=== PATIENT | female | born 1980 | race Caucasian/White ===

== ENCOUNTER 2022-03-14 15:06 | Observation (INO) | payer MEDICARE, OTHER ==
[2022-03-14 16:00] LABS: Basophils # (A) 0.1 k/uL (0-0.2); Basophils % (A) 1 %; Eosinophils % (A) 1 %; HCT 47.9 % (34.0-46.0); HGB 15.9 gm/dL (11.4-16.0); Lymphocytes # (A) 1.4 k/uL (1.0-4.8); Lymphocytes % (A) 26 %; MCH 28.3 pg (25.0-35.0); MCHC 33.2 g/dL (31.0-37.0); MCV 85.2 fL (80.0-100.0); Mean Platelet Volume 8.3; Monocytes # (A) 0.1 k/uL (0-1.0); Monocytes % (A) 3 %; Neutrophils # (A) 3.5 k/uL (1.3-7.7); Neutrophils % (A) 68 %; Platelet Count 208 k/uL (150-450); RBC 5.62 m/uL (3.80-5.40); RDW 13.5 % (11.5-15.5); WBC 5.2 k/uL (3.8-10.6)
[2022-03-14 16:22] LABS: ALT 102 U/L (4-34); AST 108 U/L (14-36); African American GFR (CKD) >90 (>60 ml/min/1.73 sqM); Albumin 4.1 g/dL (3.5-5.0); Alkaline Phosphatase 775 U/L (38-126); Amylase 72 U/L (30-110); Anion Gap 10 mmol/L; Blood Urea Nitrogen 14 mg/dL (7-17); Carbon Dioxide 30 mmol/L (22-30); Chloride 100 mmol/L (98-107); Glucose 117 mg/dL (74-99); Lipase 54 U/L (23-300); Non-African American GFR(CKD) >90 (>60 ml/min/1.73 sqM); Potassium 3.9 mmol/L (3.5-5.1); Sodium 140 mmol/L (137-145); Total Bilirubin 0.6 mg/dL (0.2-1.3); Total Protein 7.5 g/dL (6.3-8.2)
[2022-03-14] MEDS ORDERED: ONDANSETRON 4 MG/2 ML VIAL IVP STA ×2 (18:56→20:45)
[2022-03-14] MEDS ORDERED: SODIUM CHLORIDE 0.9% 2,000 ML IV STA (18:57)
[2022-03-14] MEDS ORDERED: MORPHINE SULFATE 4 MG/ML SYRINGE IVP STA (18:57)
[2022-03-14] MEDS ORDERED: methylPREDNISolone SOD SUCCI 125 MG/2 ML VIAL IV ONE (18:58)
--- NOTE | 2022-03-14 20:33 | XR ---
EXAMINATION TYPE: XR thoracic spine 2V DATE OF EXAM: 03/14/2022 COMPARISON: NONE HISTORY: Back pain TECHNIQUE: 3 views FINDINGS: Thoracic vertebra have normal alignment. Posterior elements are intact. There is no paraspi nal mass. No compression fracture. IMPRESSION: Normal thoracic spine exam. No fracture.
--- NOTE | 2022-03-14 20:35 | XR ---
EXAMINATION TYPE: XR lumbar spine 2 or 3V DATE OF EXAM: 03/14/2022 COMPARISON: NONE HISTORY: Back pain TECHNIQUE: 3 views FINDINGS: Lumbar vertebrae have normal spacing and alignment. Posterior elements are intact. No compr ession fracture. There are clips from cholecystectomy. Sacroiliac joints are intact. IMPRESSION: Negative lumbar spine exam. No fracture.
[2022-03-14] MEDS ORDERED: HYDROmorphone 0.5 MG/0.5 ML SYRINGE IVP STA (20:45)
--- NOTE | 2022-03-14 21:15 | ED ---
General Adult HPI - General Chief complaint: Nausea/Vomiting/Diarrhea Stated complaint: Abd pain Time Seen by Provider: 03/14/22 18:39 Source: patient Mode of arrival: ambulatory Limitations: no limitations - History of Present Illness Initial comments: Patient is a 42-year-old female with a past medical history of systemic lupus erythematosus who presents for evaluation of lupus flareup. 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 Patient reports generalized abdominal pain, nausea, vomiting, diarrhea, which she states is typical of her lupus enteritis flare up. Symptoms started on Sunday. Reports inability to tolerate food or liquid. Patient tried taking [place] at home with no relief. Patient also describes coffee ground emesis which she has never experienced before. Denies history of ulcer and chronic NSAID use. Patient does have a GI specialist that she has been seeing for lupus enteritis as well as unknown etiology of elevated liver enzymes. Patient also reports a protrusion in her back that she noticed 2 weeks ago and would like evaluation. Patient states she has loss some weight due to her flareups which could be why she is noticing though protrusion now. She states it does not hurt unless there is a lot of pressure on it. - Related Data Home Medications Medication Instructions Recorded Confirmed Budesonide-Formot 160-4.5 Mcg 2 puff INHALATION RT-BID 03/14/22 03/14/22 [Symbicort 160-4.5 Mcg Inhaler] HYDROcodone/APAP 7.5-325MG [[place] 1 tab PO Q6HR 03/14/22 03/14/22 7.5-325] Hydroxychloroquine Sulfate 200 mg PO BID@0900,1500 03/14/22 03/14/22 [Plaquenil] Montelukast Sodium [Singulair] 10 mg PO HS 03/14/22 03/14/22 Promethazine HCl 25 mg PO Q6H PRN 03/14/22 03/14/22 buPROPion HCL [Wellbutrin XL] 150 mg PO DAILY 03/14/22 03/14/22 fentaNYL 25MCG/HR PATCH [Duragesic 1 patch TRANSDERM Q72H 03/14/22 03/14/22 25MCG/HR] lisinopriL 2.5 mg PO DAILY 03/14/22 03/14/22 traZODone HCL [Desyrel] 100 mg PO HS 03/14/22 03/14/22 Allergies Allergy/AdvReac Type Severity Reaction Status Date / Time vancomycin Allergy Rash/Hives Verified 03/14/22 19:41 Review of Systems ROS Statement: Those systems with pertinent positive or pertinent negative responses have been documented in the HPI. ROS Other: All systems not noted in ROS Statement are negative. Past Medical History Past Medical History: Asthma, Rheumatoid Arthritis (RA) Additional Past Medical History / Comment(s): Lupus Past Surgical History: No Surgical Hx Reported, Appendectomy, Cardiac Ablation, Cholecystectomy, Hysterectomy, Tonsillectomy Smoking Status: Never smoker Past Alcohol Use History: None Reported Past Drug Use History: None Reported General Exam Limitations: no limitations General appearance: alert, in no apparent distress Head exam: Present: atraumatic, normocephalic, normal inspection Eye exam: Present: normal appearance, PERRL, EOMI. Absent: scleral icterus, conjunctival injection, periorbital swelling Neck exam: Present: normal inspection, full ROM Respiratory exam: Present: normal lung sounds bilaterally. Absent: respiratory distress, wheezes, rales, rhonchi, stridor Cardiovascular Exam: Present: regular rate, normal rhythm, normal heart sounds. Absent: systolic murmur, diastolic murmur, rubs, gallop, clicks GI/Abdominal exam: Present: soft, tenderness (moderate, generalized ), normal bowel sounds. Absent: distended, guarding, rebound, rigid Back exam: Present: normal inspection. Absent: CVA tenderness (R) Neurological exam: Present: alert, oriented X3, CN II-XII intact Psychiatric exam: Present: normal affect, normal mood Skin exam: Present: warm, dry, intact, normal color. Absent: rash Course Vital Signs 03/14/22 03/14/22 03/14/22 15:26 18:52 19:24 Temperature 98.4 F Pulse Rate 98 66 Respiratory 20 18 16 Rate Blood Pressure 126/60 145/81 129/96 O2 Sat by Pulse 92 L Oximetry 03/14/22 21:04 Temperature Pulse Rate Respiratory 16 Rate Blood Pressure 125/88 O2 Sat by Pulse Oximetry Medical Decision Making - Medical Decision Making This is a 42-year-old female who presents for evaluation of possible lupus enteritis flare up. Thorough history and examination were performed. Patient is having symptoms typical of her flare up which included, pain, nausea, vomit ing, and diarrhea. Does describe episodes of hematemesis which have never occurred before. Patient does appear to be in pain. The abdomen is soft and mildly tender in all 4 quadrants. I will obtain laboratory studies and treat patient's symptoms. I will also x-ray patient's spine due to concern for protrusion. Laboratory studies are remarkable for elevated liver enzymes, as expected per patient's history. AST elevated at 108, ALT elevated at 102, and alk phos elevated at 775. No previous laboratory studies for comparing. Patient states she usually goes to [facility] emergency department but they were too busy today. Unable to assess blood in vomit due to no emesis episodes during patient's emergency stay. Thoracic and lumbar x-rays are unremarkable. Patient given pain and nausea medication. Patient also given Solu-Medrol for lupus flareup. On reevaluation her symptoms are not controlled. I did give patient another dose of pain and nausea medication which mildly helped symptoms. Patient does not feel well enough to go home. She felt very nauseous after attempting to eat in the emergency department. Case discussed with Dr. Hoang. Patient will be admitted to his service with rheumatology consult for further evaluation and management. Patient admitted in stable condition. Dr. Benítez is my attending. - Lab Data Result diagrams: 03/14/22 15:54 03/14/22 15:54 Lab Results 03/14/22 03/14/22 Range/Units 15:54 15:54 WBC 5.2 (3.8-10.6) k/uL RBC 5.62 H (3.80-5.40) m/uL Hgb 15.9 (11.4-16.0) gm/dL Hct 47.9 H (34.0-46.0) % MCV 85.2 (80.0-100.0) fL MCH 28.3 (25.0-35.0) pg MCHC 33.2 (31.0-37.0) g/dL RDW 13.5 (11.5-15.5) % Plt Count 208 (150-450) k/uL MPV 8.3 Neutrophils % 68 % Lymphocytes % 26 % Monocytes % 3 % Eosinophils % 1 % Basophils % 1 % Neutrophils # 3.5 (1.3-7.7) k/uL Lymphocytes # 1.4 (1.0-4.8) k/uL Monocytes # 0.1 (0-1.0) k/uL Eosinophils # 0.0 (0-0.7) k/uL Basophils # 0.1 (0-0.2) k/uL Sodium 140 (137-145) mmol/L Potassium 3.9 (3.5-5.1) mmol/L Chloride 100 (98-107) mmol/L Carbon Dioxide 30 (22-30) mmol/L Anion Gap 10 mmol/L BUN 14 (7-17) mg/dL Creatinine 0.78 (0.52-1.04) mg/dL Est GFR (CKD-EPI)AfAm >90 (>60 ml/min/1.73 sqM) Est GFR (CKD-EPI)NonAf >90 (>60 ml/min/1.73 sqM) Glucose 117 H (74-99) mg/dL Calcium 9.0 (8.4-10.2) mg/dL Total Bilirubin 0.6 (0.2-1.3) mg/dL AST 108 H (14-36) U/L ALT 102 H (4-34) U/L Alkaline Phosphatase 775 H (38-126) U/L Total Protein 7.5 (6.3-8.2) g/dL Albumin 4.1 (3.5-5.0) g/dL Amylase 72 (30-110) U/L Lipase 54 (23-300) U/L Disposition Clinical Impression: Lupus (systemic lupus erythematosus), Abdominal pain, Nausea and vomiting, Back complaints Disposition: ADMITTED IP TO THIS [facility] Condition: Fair Referrals: Sangeeta Helm DO [Primary Care Provider] - 1-2 days
[2022-03-14] MEDS ORDERED: PANTOPRAZOLE 40 MG/10 ML VIAL IVP STA (21:23)
[2022-03-14] MEDS ORDERED: NALOXONE 0.4 MG/ML 1 ML VIAL IV PRN (21:35)
[2022-03-14] MEDS ORDERED: ONDANSETRON 4 MG/2 ML VIAL IVP PRN (21:35)
[2022-03-14] MEDS ORDERED: traZODone HCL 100 MG TAB PO SCH (21:45)
[2022-03-14] MEDS: SODIUM CHLORIDE 0.9% 1,000 ML IV SCH (23:15)
--- NOTE | 2022-03-14 23:53 | P.HPIM ---
History of Present Illness H&P Date: 03/14/22 The patient is a 42-year-old female with a PMH of SLE, lupus enteritis and nephritis, rheumatoid arthritis, and moderate persistent asthma who presents to the emergency room with complaints of nausea, vomiting, and abdominal pain. The patient reports experiencing frequent lupus enteritis flareups, as many as 5-6 times a year, for which she normally follows up with Magdaleno Thomas. The current episode feels similar to her prior flareups. Reports that her symptoms started this past Sunday and gradually worsened with inability to tolerate any solids or liquids. She reports too many episodes of vomiting to count. She has not seen a campus president for over a year but does follow with her brake specialist as well as toe puller who refills her SLE medications. Reported abdominal pain which also started this past Sunday, 7 out of 10, aching in nature, worsened with vomiting, nonradiating, diffuse throughout the abdomen, with no alleviating factors. Also reports a single episode of coffee-ground emesis which she has never expressed before. Denied history of gastric ulcers or NSAID use. Denies fevers, chest pain, shortness of breath. Laboratory evaluation in the emergency room was remarkable for AST 108, ALT 102, and alk phos 775. Review of systems: Pertinent positives and negatives as discussed in HPI, a complete review of systems was performed and all other systems are negative. Physical examination: General: non toxic, no distress, appears at stated age, normal weight Derm: no unusual rashes/lesions no unusual ecchymoses, warm, dry Head: atraumatic, normocephalic, symmetric Eyes: EOMI, no lid lag, anicteric sclera, pupils equal round reactive to light ENT: Nose and ears atraumatic, no thrush, no pharyngeal erythema Neck: No thyromegaly, no cervical lymphadenopathy, trachea midline, supple Mouth: no lip lesion, mucus membranes moist Cardiovascular: S1S2 reg, no murmur, positive posterior tibial pulse bilateral, no edema, capillary refill less than 2 seconds Lungs: CTA bilateral, no rhonchi, no rales , no accessory muscle use Abdominal: soft, mild diffuse tenderness to palpation, minimal guarding, no appreciable organomegaly, normal bowel sounds Ext: no gross muscle atrophy, muscle strength 5 out of 5 in all 4 extremities grossly, no contractures, Neuro: CN II-XI grossly intact, light touch intact all 4 extremities, finger to nose within normal limits, Psych: Alert, oriented, appropriate affect Assessment/plan Lupus enteritis flareup -Solu-Medrol 60 mg every 6 hourly -Rheumatology consult -IV fluids -Patient reports being able to tolerate clear liquids currently -Antiemetics -Pain control Chronic conditions: Asthma, rheumatoid arthritis -Continue with home meds DVT prophylaxis -Heparin subcu The patient is admitted with an anticipated less than 2 midnight stay for evaluation of SLE flare CODE STATUS: Full Code Discussed with: Patient Anticipated discharge date: in am Anticipated discharge place: Home Past Medical History Past Medical History: Asthma, Rheumatoid Arthritis (RA) Additional Past Medical History / Comment(s): Lupus Past Surgical History: No Surgical Hx Reported, Appendectomy, Cardiac Ablation, Cholecystectomy, Hysterectomy, Tonsillectomy Smoking Status: Never smoker Past Alcohol Use History: None Reported Past Drug Use History: None Reported - Past Family History Mother Family Medical History: Cancer Medications and Allergies Home Medications Medication Instructions Recorded Confirmed Type Budesonide-Formot 160-4.5 Mcg 2 puff INHALATION RT-BID 03/14/22 03/14/22 History [Symbicort 160-4.5 Mcg Inhaler] HYDROcodone/APAP 7.5-325MG [[place] 1 tab PO Q6HR 03/14/22 03/14/22 History 7.5-325] Hydroxychloroquine Sulfate 200 mg PO BID@0900,1500 03/14/22 03/14/22 History [Plaquenil] Montelukast Sodium [Singulair] 10 mg PO HS 03/14/22 03/14/22 History Promethazine HCl 25 mg PO Q6H PRN 03/14/22 03/14/22 History buPROPion HCL [Wellbutrin XL] 150 mg PO DAILY 03/14/22 03/14/22 History fentaNYL 25MCG/HR PATCH [Duragesic 1 patch TRANSDERM Q72H 03/14/22 03/14/22 History 25MCG/HR] lisinopriL 2.5 mg PO DAILY 03/14/22 03/14/22 History traZODone HCL [Desyrel] 100 mg PO HS 03/14/22 03/14/22 History Allergies Allergy/AdvReac Type Severity Reaction Status Date / Time vancomycin Allergy Rash/Hives Verified 03/14/22 19:41 Physical Exam Vitals: Vital Signs Temp Pulse Resp BP Pulse Ox 03/14/22 21:04 16 125/88 03/14/22 19:24 16 129/96 03/14/22 18:52 66 18 145/81 03/14/22 15:26 98.4 F 98 20 126/60 92 L Intake and Output 03/14/22 03/14/22 03/15/22 14:59 22:59 06:59 Other: Weight 68.039 kg Results CBC & Chem 7: 03/14/22 15:54 03/14/22 15:54 Labs: Abnormal Lab Results - Last 24 Hours (Table) 03/14/22 03/14/22 Range/Units 15:54 15:54 RBC 5.62 H (3.80-5.40) m/uL Hct 47.9 H (34.0-46.0) % Glucose 117 H (74-99) mg/dL AST 108 H (14-36) U/L ALT 102 H (4-34) U/L Alkaline Phosphatase 775 H (38-126) U/L
[2022-03-15] MEDS: HEPARIN SODIUM,PORCINE/PF 5,000 UNIT/0.5 ML SYRINGE SQ SCH ×2 (01:20→08:32)
[2022-03-15] MEDS: methylPREDNISolone SOD SUCCI 125 MG/2 ML VIAL IV SCH ×3 (01:21→12:41)
[2022-03-15] MEDS: SODIUM CHLORIDE 0.9% 1,000 ML IV SCH (05:23)
[2022-03-15] MEDS ORDERED: SYMBICORT 160-4.5 MCG INHALER INHALATION SCH (08:00)
[2022-03-15 08:50] LABS: HCT 36.5 % (34.0-46.0); MCH 29.5 pg (25.0-35.0); MCHC 33.7 g/dL (31.0-37.0); MCV 87.5 fL (80.0-100.0); Mean Platelet Volume 8.4; Platelet Count 155 k/uL (150-450); RBC 4.17 m/uL (3.80-5.40); RDW 13.9 % (11.5-15.5); WBC 3.1 k/uL (3.8-10.6)
[2022-03-15 08:51] VITALS: PULSE 71; RESP 18
[2022-03-15 08:55] LABS: HGB 12.3 gm/dL (11.4-16.0)
[2022-03-15] MEDS ORDERED: buPROPion XL 150 MG TAB.ER.24H PO SCH (09:00)
[2022-03-15] MEDS ORDERED: PANTOPRAZOLE 40 MG/10 ML VIAL IVP SCH (09:00)
[2022-03-15] MEDS ORDERED: HYDROXYCHLOROQUINE SULFATE 200 MG TAB PO SCH (09:00)
[2022-03-15 09:02] LABS: ALT 148 U/L (4-34); AST 180 U/L (14-36); African American GFR (CKD) >90 (>60 ml/min/1.73 sqM); Albumin/Globulin Ratio 1.1; Alkaline Phosphatase 646 U/L (38-126); Anion Gap 4 mmol/L; Blood Urea Nitrogen 16 mg/dL (7-17); Calcium 7.6 mg/dL (8.4-10.2); Carbon Dioxide 23 mmol/L (22-30); Chloride 110 mmol/L (98-107); Globulin 2.7 g/dL; Glucose 131 mg/dL (74-99); Non-African American GFR(CKD) >90 (>60 ml/min/1.73 sqM); Potassium 4.3 mmol/L (3.5-5.1); Sodium 137 mmol/L (137-145); Total Bilirubin 0.5 mg/dL (0.2-1.3); Total Protein 5.7 g/dL (6.3-8.2)
[2022-03-15 10:42] LABS: C Reactive Protein <0.5 mg/dL (<1.0)
--- NOTE | 2022-03-15 11:46 | P.CONS ---
History of Present Illness - Reason for Consult Consult date: 03/15/22 Lupus enteritis - History of Present Illness This is a inpatient hospital consult on a 42-year-old female that was seen in the emergency room on 03/14/22 with chief complaint of lupus flare. Patient complained of lupus enteritis-like symptoms including abdominal pain, nausea, vomiting, diarrhea. Her symptoms started on Sunday and has been unable to tolerate food or liquids. She tried taking [place] with no relief. She also described coffee-ground like emesis. She has seen GI in the past for lupus enteritis and history of elevated liver enzymes. She also would like someone to evaluate a protrusion in her back. She is on [place] and Plaquenil as well as fentanyl patches. Patient usually goes to [facility] when she has a flare but they were too busy so that is why she drove out to [facility]. Her thoracic and lumbar x-rays were normal. She was given pain and nausea medication as well as Solu-Medrol for her lupus flare. Patient then continued to complain to emergency room physician that she was symptomatically so she will be admitted for rheumatological consultation. Patient later told attending physician that she has visit enteritis flares about 6 times per year and has not seen a commercial tire service technician for over one year but does see a sample room supervisor who fills her Plaquenil. Pertinent labs 03/14/22: CBC shows high RBC 5.62 and high hematocrit 47.9 otherwise normal, CMP showed high AST 108, high ALT 102, high alkaline phosphatase 775, normal amylase and lipase, negative influenza. Chief complaint: Patient states that she is feeling much better since receiving nausea and pain medication during her emergency room visit. She does complain of chronic generalized pain and chronic abdominal pain. She tells me that she was diagnosed with lupus at age 29 while with twins due to severe pain and all over rashes. She was diagnosed through blood work and labs were consistent with lupus and rheumatoid arthritis. She has since seen several rheumatologists including Dr. Santillan, Dr. Burton, [facility]ology and [place] [facility]. She is currently on Plaquenil but has tried and failed Benlysta, Cellcept, Imuran, and methotrexate. She said that she either findings that they don't help or she suffered side effects. She said that Benlysta worked the best but this made her depression worsen. She said when she does have flares she will have hair loss, nasal ulcers, rashes, and worsening joint pain and stiffness. She is currently on pain control through her primary care Dr. Helm and takes fentanyl patches and Whatley. She admits to morning stiffness lasting 3 hours. She is a ex-smoker. In regard to her abdominal pain, she had a recent colonoscopy in December and was told that she had "fluid in her belly" and was diagnosed with lupus enteritis through her sample room supervisor Dr. Dozier out of [place]. She is on disability for her lupus. She is also on the waiting list to be seen at [facility] Exam: No obvious synovitis, no malar rash, lungs clear to auscultation, heart sounds regular rate and rhythm, good range of motion throughout, yellowed nails (patient admits to recent nail kazakh removal), abdomen soft and nontender with normal bowel sounds in all 4 quadrants, alert and oriented 4 I will order positive JW, double-stranded DNA, Clark, ROLLING DOWN MACHINE OPERATOR and C3 and C4 labs as well as sedimentation rate and C-reactive protein. Patient said she has not seen a commercial tire service technician in over one year and would like to be seen by Dr. Hansen for evaluation. I wrote down a medication called Saphnelo that I told her that we could discuss as an outpatient. Although, this would be pending confirming her diagnosis through labs and historical medical records. Patient is aware we do not do any sort of pain management at our office. Patient was being discharged from the emergency room due to being stable in her condition at the time of my exam. Patient was given our office information and can call and schedule a new patient exam with Dr. Hansen at her earliest convenience. Past Medical History Past Medical History: Asthma, Rheumatoid Arthritis (RA) Additional Past Medical History / Comment(s): Lupus Past Surgical History: No Surgical Hx Reported, Appendectomy, Cardiac Ablation, Cholecystectomy, Hysterectomy, Tonsillectomy Smoking Status: Never smoker Past Alcohol Use History: None Reported Past Drug Use History: None Reported - Past Family History Mother Family Medical History: Cancer Medications and Allergies Home Medications Medication Instructions Recorded Confirmed Type Budesonide-Formot 160-4.5 Mcg 2 puff INHALATION RT-BID 03/14/22 03/14/22 History [Symbicort 160-4.5 Mcg Inhaler] HYDROcodone/APAP 7.5-325MG [[place] 1 tab PO Q6HR 03/14/22 03/14/22 History 7.5-325] Hydroxychloroquine Sulfate 200 mg PO BID@0900,1500 03/14/22 03/14/22 History [Plaquenil] Montelukast Sodium [Singulair] 10 mg PO HS 03/14/22 03/14/22 History Promethazine HCl 25 mg PO Q6H PRN 03/14/22 03/14/22 History buPROPion HCL [Wellbutrin XL] 150 mg PO DAILY 03/14/22 03/14/22 History fentaNYL 25MCG/HR PATCH [Duragesic 1 patch TRANSDERM Q72H 03/14/22 03/14/22 History 25MCG/HR] lisinopriL 2.5 mg PO DAILY 03/14/22 03/14/22 History traZODone HCL [Desyrel] 100 mg PO HS 03/14/22 03/14/22 History Allergies Allergy/AdvReac Type Severity Reaction Status Date / Time vancomycin Allergy Rash/Hives Verified 03/14/22 19:41 Physical Exam Vitals: Vital Signs Temp Pulse Resp BP Pulse Ox 03/15/22 08:35 71 18 138/87 95 03/15/22 05:00 62 16 155/87 03/15/22 01:19 72 16 147/97 96 03/14/22 21:04 16 125/88 03/14/22 19:24 16 129/96 03/14/22 18:52 66 18 145/81 03/14/22 15:26 98.4 F 98 20 126/60 92 L Intake and Output 03/14/22 03/15/22 03/15/22 22:59 06:59 14:59 Other: Weight 68.039 kg - Constitutional General appearance: average body habitus, cooperative - EENT Eyes: PERRLA ENT: hearing grossly normal - Neck Neck: normal ROM - Respiratory Respiratory: bilateral: CTA - Cardiovascular Rhythm: regular Heart sounds: normal: S1, S2 - Gastrointestinal General gastrointestinal: normal bowel sounds, soft - Integumentary Integumentary: normal - Neurologic Neurologic: CNII-XII intact - Musculoskeletal Musculoskeletal: gait normal - Psychiatric Psychiatric: A&O x's 3 Results CBC & Chem 7: 03/15/22 08:15 03/15/22 08:15 Labs: Abnormal Lab Results - Last 24 Hours (Table) 03/14/22 03/14/22 03/15/22 Range/Units 15:54 15:54 08:15 WBC 3.1 L (3.8-10.6) k/uL RBC 5.62 H (3.80-5.40) m/uL Hct 47.9 H (34.0-46.0) % Chloride (98-107) mmol/L Glucose 117 H (74-99) mg/dL Calcium (8.4-10.2) mg/dL AST 108 H (14-36) U/L ALT 102 H (4-34) U/L Alkaline Phosphatase 775 H (38-126) U/L Total Protein (6.3-8.2) g/dL Albumin (3.5-5.0) g/dL 03/15/22 Range/Units 08:15 WBC (3.8-10.6) k/uL RBC (3.80-5.40) m/uL Hct (34.0-46.0) % Chloride 110 H (98-107) mmol/L Glucose 131 H (74-99) mg/dL Calcium 7.6 L (8.4-10.2) mg/dL AST 180 H (14-36) U/L ALT 148 H (4-34) U/L Alkaline Phosphatase 646 H (38-126) U/L Total Protein 5.7 L (6.3-8.2) g/dL Albumin 3.0 L (3.5-5.0) g/dL
[2022-03-15] MEDS ORDERED: HYDROcodone/APAP 7.5-325MG 1 EACH TAB PO SCH (12:00)
--- NOTE | 2022-03-15 12:28 | P.DS ---
Providers Date of admission: 03/14/22 22:33 Expected date of discharge: 03/15/22 Attending physician: Chris Hoang MD Consults: 03/14/22 21:36 Consult Physician Routine Consulting Provider: Wanda Hansen Consult Reason/Comments: lupus enteritis flare up Do you want consulting provider notified?: Yes Primary care physician: Sangeeta Helm [facility] Course: Discharge Diagnosis: Lupus enteritis flareup, patient discharged home on prednisone 60 mg daily 10 days. Patient instructed she will need to follow up with tool and die maker level five for r emainder of prescription for steroid taper. Patient to continue with Plaquenil Transaminitis, patient to follow-up outpatient in 3 days for repeat CMP with results to be sent to PCP for follow-up and management. Asthma, continue daily medication regimen with Singulair and Symbicort Rheumatoid arthritis, continue to follow up outpatient with tool and die maker level five Anxiety. Continue with Wellbutrin and trazodone Hospital Course: The patient is a 42-year-old female with a past medical history of lupus enteritis and nephritis, rheumatoid arthritis, and moderate persistent asthma. She presented to the emergency department 03/14/22 with a chief complaint of nausea, vomiting, and abdominal pain. Patient reported frequent lupus enteritis flareups and states this episode is similar to previous flareups. Patient underwent full evaluation in the emergency department. CBC unremarkable. BMP unremarkable. Liver profile showing transaminitis with AST 108, ALT 102, and alkaline phosphatase of 775. Patient was admitted overnight, received IV fluid hydration and steroids. Patient's condition did significantly improve. All nausea, vomiting, and diarrhea completely subsided. Patient reports full resolution of previously reported abdominal pain and is tolerating clear liquids. She was then increased up to a low-fat diet and tolerated well. Repeat labs revealing an elevated ESR of 30 and worsening transaminitis with AST of 180, ALT 148, and alkaline phosphatase of 646. Patient very adamant about going home today as she reports that it is her son's 21[age] birthday. Attempts made to talk with patient as it was highly recommended for her to stay in the hospital for at least 1 more day, however she declined wanting discharge and stating she will follow up outpatient with her PCP and tool and die maker level five. Patient to follow up outpatient in 3 days for repeat CMP with results to PCP for follow up and management. Physical examination: Patient seen and examined at bedside. Vital signs reviewed and stable. General: Nontoxic, no distress and appears stated age. Derm: Skin warm and dry, normal coloration for ethnicity. Head: Atraumatic, normocephalic and symmetric. Eyes: EOMs intact, no lid lag, and anicteric sclera Mouth: no lip lesions, mucus membranes moist Cardiovascular: regular rate and rhythm with normal S1S2, no murmur, positive posterior tibial pulses bilaterally, and cap refill < 2 seconds. Lungs: Respirations even, regular, and unlabored on room air. Lungs CTA bilaterally, no rhonchi, no rales, no wheezing, and no accessory muscle usage. Abdominal: soft, nontender to palpation, no guarding, no appreciable organomegaly Ext: ROM intact. No gross muscle atrophy, no edema, no contractures Neuro: Speech clear, face symmetrical and CN II-XII grossly intact with no noted focal neuro deficits Psych: Alert and oriented to person, place, time, and situation. Appropriate and pleasant affect. A total of 34 minutes of time were spent preparing this complex discharge summary. Pt was discharged on 03/15/22 at 12:24 PM. Wai Jones NP rendered care for this patient independently, reviewed the findings and plan as documented in the note above. I did not physically speak with or examine the patient on this date. Patient Condition at Discharge: Stable Plan - Discharge Summary New Discharge Prescriptions: New predniSONE 60 mg PO DAILY 10 Days #60 tab Continue Montelukast Sodium [Singulair] 10 mg PO HS lisinopriL 2.5 mg PO DAILY Budesonide-Formot 160-4.5 Mcg [Symbicort 160-4.5 Mcg Inhaler] 2 puff INHALATION RT-BID buPROPion HCL [Wellbutrin XL] 150 mg PO DAILY traZODone HCL [Desyrel] 100 mg PO HS Promethazine HCl 25 mg PO Q6H PRN PRN Reason: Nausea fentaNYL 25MCG/HR PATCH [Duragesic 25MCG/HR] 1 patch TRANSDERM Q72H HYDROcodone/APAP 7.5-325MG [[place] 7.5-325] 1 tab PO Q6HR Hydroxychloroquine Sulfate [Plaquenil] 200 mg PO BID@0900,1500 Discharge Medication List Budesonide-Formot 160-4.5 Mcg [Symbicort 160-4.5 Mcg Inhaler] 2 puff INHALATION RT-BID 03/14/22 [History] HYDROcodone/APAP 7.5-325MG [[place] 7.5-325] 1 tab PO Q6HR 03/14/22 [History] Hydroxychloroquine Sulfate [Plaquenil] 200 mg PO BID@0900,1500 03/14/22 [History] Montelukast Sodium [Singulair] 10 mg PO HS 03/14/22 [History] Promethazine HCl 25 mg PO Q6H PRN 03/14/22 [History] buPROPion HCL [Wellbutrin XL] 150 mg PO DAILY 03/14/22 [History] fentaNYL 25MCG/HR PATCH [Duragesic 25MCG/HR] 1 patch TRANSDERM Q72H 03/14/22 [History] lisinopriL 2.5 mg PO DAILY 03/14/22 [History] traZODone HCL [Desyrel] 100 mg PO HS 03/14/22 [History] predniSONE 60 mg PO DAILY 10 Days #60 tab 03/15/22 [Rx] Follow up Appointment(s)/Referral(s): Wanda Hansen MD [STAFF PHYSICIAN] - 1 Week (Contact information for Local Seed Analyst as you requested, if you do not get an appointment within 1 week, highly recommend making an appointment with your Seed Analyst at [facility] ) Sangeeta Helm DO [Primary Care Provider] - 1-2 days Ambulatory/Diagnostic Orders: Comprehensive Metabolic Panel [LAB.AMB] Time Frame: 3 Days, Facility: [facility], Location: [facility] Activity/Diet/Wound Care/Special Instructions: Activity: As tolerated. Take breaks as needed. Diet: Low fat diet and avoid alfalfa and garlic, as these foods have been known to trigger lupus flares Special Instructions: Take all of your medications as directed and remember to keep all of your doctor's appointments and follow-up as needed. It is highly recommended that you stay in the hospital at least one more day, however per your request you are being discharged home and need to follow up with your [facility] Analyst at [facility] if you are not able to get into a local rhematologist within the week. You have been given contact information for a local Seed Analyst per your request. Thank you for allowing us to participate in your care, it was truly a pleasure having you for our patient!!! Discharge Disposition: HOME SELF-CARE
[2022-03-15 12:33] LABS: Erythrocyte Sedimentation Rate 30 mm/hr (0-20)
[2022-03-15 12:40] VITALS: BP 137/84; TEMP 98.2
[2022-03-15 16:30] LABS: Complement C3 71.9 mg/dL (80.0-207.0); Rheumatoid Factor, Qnt <10 IU/mL (0-15)
[2022-03-16 16:44] LABS: Anti-Smith Ab Interp NEGATIVE (NEGATIVE); DNA Double-Stranded NEGATIVE (NEGATIVE)
== END 2022-03-15 12:41 | disposition home or self-care (01) ==
LOC: EC 15:06 → 6NMEDSUR 22:33
PROVIDERS: ADMIT Internal Medicine; ATTEND Internal Medicine
DX: M32.9 Systemic lupus erythematosus, unspecified (principal); K52.9 Noninfective gastroenteritis and colitis, unspecified; R74.01 Elevation of levels of liver transaminase levels; R70.0 Elevated erythrocyte sedimentation rate; R74.8 Abnormal levels of other serum enzymes; M06.9 Rheumatoid arthritis, unspecified; J45.40 Moderate persistent asthma, uncomplicated; G89.29 Other chronic pain; F32.A Depression, unspecified; F41.9 Anxiety disorder, unspecified; Z79.51 Long term (current) use of inhaled steroids; Z79.899 Other long term (current) drug therapy; Z88.1 Allergy status to other antibiotic agents; Z87.891 Personal history of nicotine dependence; Z90.49 Acquired absence of other specified parts of digestive tract; Z80.9 Family history of malignant neoplasm, unspecified
CPT/HCPCS: 99285; 96376; 96361; 96372; 96374; 96375; 94640; 86160 ×2; 80053 ×2; 85652; 86235; 82150; 83690; 85025; 85027; 86140; 86431; 86038; 86039; 86225; 87502; 72070; 72100; G0378 ×2; J2270; J2930 ×2; J2405 ×2; C9113 ×2; J1170; J1644

== ENCOUNTER 2022-05-19 20:07 | Emergency (ER) | payer MEDICARE ==
[2022-05-19 20:24] VITALS: BP 141/72; PULSE 85; RESP 22; TEMP 98.1
[2022-05-19] MEDS ORDERED: KETOROLAC 15 MG/ML 1 ML VIAL IVP STA (20:36)
--- NOTE | 2022-05-19 20:42 | ED ---
General Adult HPI - General Chief complaint: Abdominal Pain Stated complaint: Abd pain Time Seen by Provider: 05/19/22 20:30 Source: patient, RN notes reviewed, old records reviewed Mode of arrival: ambulatory Limitations: no limitations - History of Present Illness Initial comments: This is a 42-year-old, non-toxic appearing female that presents to the emergency room ambulatory with complaints of right lower quadrant pain that started yesterday morning. Patient states that throughout the day yesterday it did get better however this morning it awoke her, sharp in nature. She also complains of dysuria with a sensation of incomplete emptying of her bladder. Patient has had multiple UTIs in the past and this feels similar. She states that she does have chronic diarrhea having 5 episodes a day for the past several weeks. She has seen GI in the past with no definitive diagnosis. She denies any nausea vomiting or fevers. History of lupus, asthma, rheumatoid arthritis and chronic diarrhea. She has a surgical history of appendectomy, cholecystectomy and hysterectomy. -: days(s) (2) Location: abdomen (RLQ pain) Radiation: back (low) Severity scale (1-10): 7 Quality: sharp Consistency: constant Improves with: none Associated Symptoms: other (Dysuria) Treatments Prior to Arrival: other ([place]) - Related Data Home Medications Medication Instructions Recorded Confirmed Budesonide-Formot 160-4.5 Mcg 2 puff INHALATION RT-BID 03/14/22 05/19/22 [Symbicort 160-4.5 Mcg Inhaler] HYDROcodone/APAP 7.5-325MG [[place] 1 tab PO Q6HR PRN 03/14/22 05/19/22 7.5-325] Hydroxychloroquine Sulfate 200 mg PO DAILY 03/14/22 05/19/22 [Plaquenil] buPROPion HCL [Wellbutrin XL] 150 mg PO DAILY 03/14/22 05/19/22 fentaNYL 25MCG/HR PATCH [Duragesic 1 patch TRANSDERM Q72H 03/14/22 05/19/22 25MCG/HR] lisinopriL 2.5 mg PO DAILY 03/14/22 05/19/22 traZODone HCL [Desyrel] 50 - 100 mg PO HS 03/14/22 05/19/22 Previous Rx's Medication Instructions Recorded Potassium Chloride [Klor-Con M20] 20 meq PO DAILY 30 Days #30 tab 05/19/22 Allergies Allergy/AdvReac Type Severity Reaction Status Date / Time vancomycin Allergy Rash/Hives Verified 05/19/22 23:08 Patient : No (Hysterectomy) Review of Systems ROS Statement: Those systems with pertinent positive or pertinent negative responses have been documented in the HPI. ROS Other: All systems not noted in ROS Statement are negative. Past Medical History Past Medical History: Asthma, Rheumatoid Arthritis (RA) Additional Past Medical History / Comment(s): Lupus History of Any Multi-Drug Resistant Organisms: C-DIFF, MRSA Date of last positivie culture/infection: 2016 MDRO Source:: left neck Past Surgical History: Appendectomy, Cardiac Ablation, Cholecystectomy, Hysterectomy, Tonsillectomy Past Psychological History: Anxiety, Depression Smoking Status: Former smoker Past Alcohol Use History: None Reported Past Drug Use History: None Reported - Past Family History Mother Family Medical History: Cancer General Exam Limitations: no limitations General appearance: alert, in no apparent distress Head exam: Present: atraumatic Eye exam: Present: normal appearance. Absent: scleral icterus, conjunctival injection, periorbital swelling ENT exam: Present: mucous membranes moist, other (Abrasion top lip) Neck exam: Present: normal inspection, full ROM. Absent: tenderness, meningismus Respiratory exam: Present: normal lung sounds bilaterally. Absent: respiratory distress, accessory muscle use Cardiovascular Exam: Present: regular rate GI/Abdominal exam: Present: soft, tenderness (Right lower quadrant). Absent: distended, guarding, rebound, rigid, normal bowel sounds Extremities exam: Present: normal inspection, full ROM, normal capillary refill. Absent: tenderness, pedal edema Back exam: Present: normal inspection, full ROM, tenderness (LS-spine). Absent: CVA tenderness (R), CVA tenderness (L), rash noted Neurological exam: Present: alert, oriented X3, normal gait Psychiatric exam: Present: normal affect, normal mood Skin exam: Present: warm, dry, normal color. Absent: cyanosis, diaphoretic, petechiae, pallor Course Vital Signs 05/19/22 20:20 Temperature 98.1 F Pulse Rate 85 Respiratory 22 Rate Blood Pressure 141/72 O2 Sat by Pulse 97 Oximetry - Reevaluation(s) Reevaluation #1: 05/19/22 20:57 Post void residual bladder scan shows 24ml Time: 20:57 Medical Decision Making - Medical Decision Making Ultrasound was performed due to patient's right lower quadrant pain. She does have a history of appendectomy and hysterectomy. Left ovary shows multiloculat ed minimally complex cyst. Right ovary not clearly visualized related to great amount of bowel. Patient has been having multiple episodes of diarrhea. She has a history of frequent diarrhea and has seen GI Dr Dozier in the past with no specific diagnosis. The patient does have a history of appendectomy, partial hysterectomy, and cholecystectomy. No evidence of leukocytosis. Hemoglobin and Hematocrit are stable. There is no evidence of urinary tract infection. Labs show potassium of 3.0 and she was given 40 of K-Dur in ER. Patient denies any vomiting. Patient's symptoms are consistent with enteritis. She was encouraged to increase her fluid intake. Given a prescription for potassium due to her hypokalemia likely related to persistent diarrhea. On reexam, her abdomen is soft. Vital signs are stable. Instructed to follow-up with her primary care doctor she is agreeable to this plan of care. She is requesting a pain shot being discharged home and states that her mom is driving her home. - Lab Data Result diagrams: 05/19/22 21:13 05/19/22 21:13 Lab Results 05/19/22 05/19/22 05/19/22 Range/Units 21:13 21:13 21:13 WBC 3.2 L (3.8-10.6) k/uL RBC 4.14 (3.80-5.40) m/uL Hgb 12.2 (11.4-16.0) gm/dL Hct 37.0 (34.0-46.0) % MCV 89.2 (80.0-100.0) fL MCH 29.5 (25.0-35.0) pg MCHC 33.0 (31.0-37.0) g/dL RDW 14.5 (11.5-15.5) % Plt Count 75 L D (150-450) k/uL MPV 9.7 Neutrophils % 61 % Lymphocytes % 32 % Monocytes % 4 % Eosinophils % 1 % Basophils % 1 % Neutrophils # 2.0 (1.3-7.7) k/uL Lymphocytes # 1.0 (1.0-4.8) k/uL Monocytes # 0.1 (0-1.0) k/uL Eosinophils # 0.0 (0-0.7) k/uL Basophils # 0.0 (0-0.2) k/uL Sodium (137-145) mmol/L Potassium (3.5-5.1) mmol/L Chloride (98-107) mmol/L Carbon Dioxide (22-30) mmol/L Anion Gap mmol/L BUN (7-17) mg/dL Creatinine (0.52-1.04) mg/dL Est GFR (CKD-EPI)AfAm (>60 ml/min/1.73 sqM) Est GFR (CKD-EPI)NonAf (>60 ml/min/1.73 sqM) Glucose (74-99) mg/dL Lactic Ac Sepsis Rflx Plasma Lactic Acid Roger (0.7-2.0) mmol/L Calcium (8.4-10.2) mg/dL Total Bilirubin (0.2-1.3) mg/dL AST (14-36) U/L ALT (4-34) U/L Alkaline Phosphatase (38-126) U/L Total Protein (6.3-8.2) g/dL Albumin (3.5-5.0) g/dL Urine Color Yellow Urine Appearance Cloudy H (Clear) Urine pH 6.0 (5.0-8.0) Ur Specific [place] 1.025 (1.001-1.035) Urine Protein 3+ H (Negative) Urine Glucose (UA) Negative (Negative) Urine Ketones Negative (Negative) Urine Blood Trace H (Negative) Urine Nitrite Negative (Negative) Urine Bilirubin 1+ H (Negative) Urine Urobilinogen 2.0 (<2.0) mg/dL Ur Leukocyte Esterase Negative (Negative) Urine RBC 1 (0-5) /hpf Urine WBC 5 (0-5) /hpf Ur Squamous Epith Cells 8 H (0-4) /hpf Hyaline Casts 12 H (0-2) /lpf Urine Mucus Rare H (None) /hpf Urine HCG, Qual Not Detected (Not Detectd) 05/19/22 05/19/22 05/19/22 Range/Units 21:13 21:13 22:16 WBC (3.8-10.6) k/uL RBC (3.80-5.40) m/uL Hgb (11.4-16.0) gm/dL Hct (34.0-46.0) % MCV (80.0-100.0) fL MCH (25.0-35.0) pg MCHC (31.0-37.0) g/dL RDW (11.5-15.5) % Plt Count (150-450) k/uL MPV Neutrophils % % Lymphocytes % % Monocytes % % Eosinophils % % Basophils % % Neutrophils # (1.3-7.7) k/uL Lymphocytes # (1.0-4.8) k/uL Monocytes # (0-1.0) k/uL Eosinophils # (0-0.7) k/uL Basophils # (0-0.2) k/uL Sodium 138 (137-145) mmol/L Potassium 3.0 L (3.5-5.1) mmol/L Chloride 100 (98-107) mmol/L Carbon Dioxide 25 (22-30) mmol/L Anion Gap 13 mmol/L BUN 8 (7-17) mg/dL Creatinine 0.55 (0.52-1.04) mg/dL Est GFR (CKD-EPI)AfAm >90 (>60 ml/min/1.73 sqM) Est GFR (CKD-EPI)NonAf >90 (>60 ml/min/1.73 sqM) Glucose 109 H (74-99) mg/dL Lactic Ac Sepsis Rflx Y Plasma Lactic Acid Roger 2.2 H* (0.7-2.0) mmol/L Calcium 8.4 (8.4-10.2) mg/dL Total Bilirubin 0.9 (0.2-1.3) mg/dL AST 95 H (14-36) U/L ALT 77 H (4-34) U/L Alkaline Phosphatase 956 H (38-126) U/L Total Protein 6.5 (6.3-8.2) g/dL Albumin 3.4 L (3.5-5.0) g/dL Urine Color Urine Appearance (Clear) Urine pH (5.0-8.0) Ur Specific [place] (1.001-1.035) Urine Protein (Negative) Urine Glucose (UA) (Negative) Urine Ketones (Negative) Urine Blood (Negative) Urine Nitrite (Negative) Urine Bilirubin (Negative) Urine Urobilinogen (<2.0) mg/dL Ur Leukocyte Esterase (Negative) Urine RBC (0-5) /hpf Urine WBC (0-5) /hpf Ur Squamous Epith Cells (0-4) /hpf Hyaline Casts (0-2) /lpf Urine Mucus (None) /hpf Urine HCG, Qual (Not Detectd) Disposition Clinical Impression: Enteritis Disposition: HOME SELF-CARE Condition: Good Instructions (If sedation given, give patient instructions): Enteritis (ED) Additional Instructions: Increase your fluid intake. Take the potassium supplementation once a day. Follow-up with your primary care doctor for continuation of care. Return to the emergency room with any new or concerning symptoms including feve r, increased pain or persistent nausea vomiting. Prescriptions: Potassium Chloride [Klor-Con M20] 20 meq PO DAILY 30 Days #30 tab Is patient prescribed a controlled substance at d/c from ED?: No Referrals: Sangeeta Helm DO [Primary Care Provider] - 1-2 days Time of Disposition: 22:50
[2022-05-19] MEDS ORDERED: KETOROLAC 15 MG/ML 1 ML VIAL IM STA (21:18)
[2022-05-19 21:22] LABS: Basophils % (A) 1 %; Eosinophils % (A) 1 %; HGB 12.2 gm/dL (11.4-16.0); Lymphocytes % (A) 32 %; MCH 29.5 pg (25.0-35.0); MCV 89.2 fL (80.0-100.0); Mean Platelet Volume 9.7; Monocytes # (A) 0.1 k/uL (0-1.0); Monocytes % (A) 4 %; Neutrophils % (A) 61 %; RBC 4.14 m/uL (3.80-5.40); RDW 14.5 % (11.5-15.5); WBC 3.2 k/uL (3.8-10.6)
[2022-05-19 21:25] LABS: Appearance,Urine Cloudy (Clear); Bilirubin,Urine 1+ (Negative); Blood,Urine Trace (Negative); Color,Urine Yellow; Glucose,Urine (UA) Negative (Negative); Hyaline Casts,Urine 12 /lpf (0-2); Ketones,Urine Negative (Negative); Leukocyte Esterase,Urine Negative (Negative); Mucus,Urine Rare /hpf; Nitrite,Urine Negative (Negative); Protein,Urine 3+ (Negative); RBC,Urine 1 /hpf (0-5); Specific Gravity,Urine 1.025 (1.001-1.035); Squamous Epithelial Cell,Urine 8 /hpf (0-4); WBC,Urine 5 /hpf (0-5)
[2022-05-19 21:31] LABS: ALT 77 U/L (4-34); AST 95 U/L (14-36); African American GFR (CKD) >90 (>60 ml/min/1.73 sqM); Albumin 3.4 g/dL (3.5-5.0); Alkaline Phosphatase 956 U/L (38-126); Anion Gap 13 mmol/L; Blood Urea Nitrogen 8 mg/dL (7-17); Calcium 8.4 mg/dL (8.4-10.2); Carbon Dioxide 25 mmol/L (22-30); Chloride 100 mmol/L (98-107); Glucose 109 mg/dL (74-99); Non-African American GFR(CKD) >90 (>60 ml/min/1.73 sqM); Sodium 138 mmol/L (137-145); Total Bilirubin 0.9 mg/dL (0.2-1.3); Total Protein 6.5 g/dL (6.3-8.2)
[2022-05-19 21:36] LABS: Platelet Count 75 k/uL (150-450)
[2022-05-19] MEDS ORDERED: POTASSIUM CHLORIDE ER 20 MEQ TAB.ER PO STA (22:09)
--- NOTE | 2022-05-19 22:14 | US ---
EXAMINATION TYPE: US transvaginal DATE OF EXAM: 05/19/2022 COMPARISON: NONE CLINICAL HISTORY: Pain in the RLQ. Hx hysterectomy in 2014. Patient has both ovaries. Hx twin gestati on. . TECHNIQUE: Transvaginal (TV). Date of LMP: Hysterectomy in 2013 EXAM MEASUREMENTS: Right Ovary: 4.3 x 3.6 x 2.5 cm Left Ovary: 3.7 x 2.8 x 2.4 cm 1. Uterus: Surgically absent 2. Endometrium: Surgically absent 3. Right Ovary: Limited visibility due to great amount of bowel. Some arterial waveforms appear more high-resistant. 4. Left Ovary: Multiloculated, minimally complex cyst, loculations contain a small amount of echogen ic internal debris. Cyst measures 0.2 x 2.1 x 2.4 cm. No definitive internal color Doppler flow withi n the septations. Spectral, color and waveform doppler imaging shows arterial and venous flow within the ovaries. 5. Bilateral Adnexa: Fluid is seen bilaterally. 6. Posterior cul-de-sac: Fluid seen midline pelvis. IMPRESSION: 1. Complex left adnexal cystic lesion, suspected to represent a hemorrhagic cyst . Recommend short-te rm sonographic follow-up in 4-6 weeks to assess for resolution and need for further follow-up. 2. Limited visualization of the right ovary. Color Doppler flow is appreciated within the ovaries rell aterally.
[2022-05-19] MEDS ORDERED: MORPHINE SULFATE 2 MG/ML SYRINGE IM ONE (22:48)
== END 2022-05-19 23:04 | disposition home or self-care (01) ==
LOC: EC 20:07
DX: K52.9 Noninfective gastroenteritis and colitis, unspecified (principal); J45.909 Unspecified asthma, uncomplicated; Z87.891 Personal history of nicotine dependence
CPT/HCPCS: 51798; 36415; 80053; 83605; 85025; 81001; 81025; 93975; 76830; 99284; 96372; J2270; J1885

== ENCOUNTER 2023-05-01 18:04 | Emergency (ER) | payer MEDICARE ==
[2023-05-01 18:13] VITALS: BP 137/77; PULSE 78; RESP 16; TEMP 98.5
--- NOTE | 2023-05-01 19:12 | XR ---
EXAMINATION TYPE: XR shoulder complete RT DATE OF EXAM: 05/01/2023 CLINICAL HISTORY: pain TECHNIQUE: Three views of the right shoulder are obtained. COMPARISON: None FINDINGS: There is no acute fracture/dislocation evident. The acromioclavicular and glenohumeral adelso int spaces appear within normal limits. The visualized ribs are intact and unremarkable. IMPRESSION: 1. There is no acute fracture or dislocation. ICD 10 NO FRACTURE, INITIAL EVALUATION
[2023-05-01] MEDS ORDERED: KETOROLAC 15 MG/ML 1 ML VIAL IM STA (19:52)
--- NOTE | 2023-05-01 19:52 | ED ---
Upper Extremity HPI - General Chief Complaint: Extremity Injury, Upper Stated Complaint: Rt Shoulder pain Time Seen by Provider: 05/01/23 19:32 Source: patient Mode of arrival: ambulatory Limitations: no limitations - History of Present Illness Initial Comments: 43-year-old female presenting with chief complaint of right shoulder pain. Patient has had pain ongoing for several months. She states that previously helped her daughter was softball and is frequently throwing the ball which may have aggravated the pain. No definitive injury or trauma. Patient has decreased range of motion secondary to pain. No obvious deformity. Pain is mainly of the anterior portion of the shoulder - Related Data Home Medications Medication Instructions Recorded Confirmed Budesonide-Formot 160-4.5 Mcg 2 puff INHALATION RT-BID 03/14/22 05/19/22 [Symbicort 160-4.5 Mcg Inhaler] HYDROcodone/APAP 7.5-325MG [[place] 1 tab PO Q6HR PRN 03/14/22 05/19/22 7.5-325] Hydroxychloroquine Sulfate 200 mg PO DAILY 03/14/22 05/19/22 [Plaquenil] buPROPion HCL [Wellbutrin XL] 150 mg PO DAILY 03/14/22 05/19/22 fentaNYL 25MCG/HR PATCH [Duragesic 1 patch TRANSDERM Q72H 03/14/22 05/19/22 25MCG/HR] lisinopriL 2.5 mg PO DAILY 03/14/22 05/19/22 traZODone HCL [Desyrel] 50 - 100 mg PO HS 03/14/22 05/19/22 Previous Rx's Medication Instructions Recorded Potassium Chloride [Klor-Con M20] 20 meq PO DAILY 30 Days #30 tab 05/19/22 Allergies Allergy/AdvReac Type Severity Reaction Status Date / Time vancomycin Allergy Rash/Hives Verified 05/19/22 23:08 Review of Systems ROS Statement: Those systems with pertinent positive or pertinent negative responses have been documented in the HPI. ROS Other: All systems not noted in ROS Statement are negative. Past Medical History Past Medical History: Asthma, Rheumatoid Arthritis (RA) Additional Past Medical History / Comment(s): Lupus History of Any Multi-Drug Resistant Organisms: C-DIFF, MRSA Date of last positivie culture/infection: 2016 MDRO Source:: left neck Past Surgical History: Appendectomy, Cardiac Ablation, Cholecystectomy, Hysterectomy, Tonsillectomy Past Psychological History: Anxiety, Depression Smoking Status: Former smoker Past Alcohol Use History: None Reported Past Drug Use History: None Reported - Past Family History Mother Family Medical History: Cancer General Exam Limitations: no limitations General appearance: alert, in no apparent distress Head exam: Present: atraumatic, normocephalic, normal inspection Eye exam: Present: normal appearance Neck exam: Present: normal inspection, full ROM Right Shoulder Exam: Present: normal inspection, tenderness. Absent: full ROM, swelling, deformity Vascular: Absent: vascular compromise Neurological exam: Present: alert, oriented X3, CN II-XII intact Psychiatric exam: Present: normal affect, normal mood Skin exam: Present: warm, dry, intact, normal color. Absent: rash Course Vital Signs 05/01/23 18:10 Temperature 98.5 F Pulse Rate 78 Respiratory 16 Rate Blood Pressure 137/77 O2 Sat by Pulse 98 Oximetry Medical Decision Making - Medical Decision Making Was pt. sent in by a medical professional or institution (, PA, TANK WAGON DRIVER, urgent care, hospital, or long term...) When possible be specific @ -No Did you speak to anyone other than the patient for history (EMS, parent, family, police, friend...)? What history was obtained from this source @ -No Did you review nursing and triage notes (agree or disagree)? Why? @ -I reviewed and agree with nursing and triage notes Were old charts reviewed (outside hosp., previous admission, EMS record, old EKG, old radiological studies, urgent care reports/EKG's, long term records)? Report findings @ -No old charts were reviewed Differential Diagnosis (chest pain, altered mental status, abdominal pain women, abdominal pain men, vaginal bleeding, weakness, fever, dyspnea, syncope, headache, dizziness, GI bleed, back pain, seizure, CVA, palpatations, mental health, musculoskeletal)? @ -Differential Musculoskeletal Muscular strain, contusion, ligament sprain, fracture, arthritis, septic arthritis, bursitis, cellulitis, muscle spasm, nerve compression, DVT, arterial occlusion, herpes zoster, electrolyte abnormality, tumor.... This is not meant to be in all inclusive list EKG interpreted by me (3pts min.). @ -As above X-rays interpreted by me (1pt min.). @ -X-ray showed no acute process CT interpreted by me (1pt min.). @ -None done U/S interpreted by me (1pt. min.). @ -None done What testing was considered but not performed or refused? (CT, X-rays, U/S, labs)? Why? @ -None What meds were considered but not given or refused? Why? @ -None Did you discuss the management of the patient with other professionals (professionals i.e. DrDemetrio, PA, TANK WAGON DRIVER, lab, RT, psych nurse, social welfare research worker, computer systems engineer, teacher, commissary officer, watch case polisher)? Give summary @ -No Was smoking cessation discussed for >3mins.? @ -No Was critical care preformed (if so, how long)? @ -No Were there social determinants of health that impacted care today? How? (Homelessness, low income, unemployed, alcoholism, drug addiction, transportation, low edu. Level, literacy, decrease access to med. care, nursing home, rehab)? @ -No Was there de-escalation of care discussed even if they declined (Discuss DNR or withdrawal of care, Hospice)? DNR status @ -No What co-morbidities impacted this encounter? (DM, HTN, Smoking, COPD, CAD, Cancer, CVA, ARF, Chemo, Hep., AIDS, mental health diagnosis, sleep apnea, morbid obesity)? @ -None Was patient admitted / discharged? Hospital course, mention meds given and route, prescriptions, significant lab abnormalities, going to OR and other pertinent info. @ -43-year-old female presenting with chief complaint of worsening right shoulder pain. No new injury or trauma. Physical examination shows anterior shoulder tenderness. X-rays negative. Patient is placed in an arm sling and instructed to follow up with orthopedics. Educated on supportive management at home. Follow-up with PCP. Report back to ER with any new or worsening symptoms. Discussed return parameters and answered all questions. Patient conveyed verbal understanding and agreed to the plan. I discussed this case in detail with my attending Dr. Brizuela Undiagnosed new problem with uncertain prognosis? @ -No Drug Therapy requiring intensive monitoring for toxicity (Heparin, Nitro, Insulin, Cardizem)? @ -No Were any procedures done? @ -No Diagnosis/symptom? @ -Shoulder pain Acute, or Chronic, or Acute on Chronic? @ -acute Uncomplicated (without systemic symptoms) or Complicated (systemic symptoms)? @ -Uncomplicated Side effects of treatment? @ -No Exacerbation, Progression, or Severe Exacerbation? @ -No Poses a threat to life or bodily function? How? (Chest pain, [place], [place], pneumonia, PE, COPD, DKA, ARF, appy, cholecystitis, CVA, Diverticulitis, Homicidal, Suicidal, threat to staff... and all critical care pts) @ -No Disposition Clinical Impression: Shoulder pain Disposition: HOME SELF-CARE Condition: Good Instructions (If sedation given, give patient instructions): Shoulder Pain (ED) Additional Instructions: Follow-up with PCP and orthopedics. Report back to ER with any new or worsening symptoms. Take Motrin and Tylenol as needed for pain control. Is patient prescribed a controlled substance at d/c from ED?: No Referrals: Sangeeta Helm DO [Primary Care Provider] - 1-2 days Joe Medeiros DO [Doctor of Osteopathic Medicine] - 1-2 days Time of Disposition: 19:52
== END 2023-05-01 20:09 | disposition home or self-care (01) ==
LOC: EC 18:04
DX: M25.511 Pain in right shoulder (principal); J45.909 Unspecified asthma, uncomplicated; Z86.59 Personal history of other mental and behavioral disorders; Z87.891 Personal history of nicotine dependence; Z79.51 Long term (current) use of inhaled steroids; Z88.8 Allergy status to other drugs, medicaments and biological substances
CPT/HCPCS: 73030; 99283; 96372; J1885

== ENCOUNTER 2023-07-17 17:18 | Emergency (ER) | payer MEDICARE ==
[2023-07-17 17:43] VITALS: RESP 18
--- NOTE | 2023-07-17 18:01 | ED ---
Nausea/Vomiting/Diarrhea HPI - General Source: patient, RN notes reviewed Mode of arrival: ambulatory Limitations: no limitations <Elpidio Hurt - Last Filed: 07/17/23 18:00> - General Source: patient, RN notes reviewed Mode of arrival: ambulatory Limitations: no limitations <Philipp Kendall - Last Filed: 07/17/23 22:40> - General Chief complaint: Nausea/Vomiting/Diarrhea Stated complaint: lupus flair Time Seen by Provider: 07/17/23 18:00 - History of Present Illness Initial comments: 43-year-old female presents emergency Department chief complaint nausea vomiting diarrhea. Patient states she has lupus states this is her typical flareup. Patient states she's been hospitalized in the past secondary to dehydration, left leg issues. Patient states she is followed by [facility]. 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 Patient has had diarrhea for the past week. Patient has abdominal cramping. Patient has had nausea with a few episodes of vomiting. Patient does see a nipping machine operator at [facility]. Patient states this is been a fairly chronic problem for her for the past 9 years. Patient does request pain medication. Patient does not believe her symptoms are bad enough for her to have to go to [facility] today. (Philipp Kendall) - Related Data Home Medications Medication Instructions Recorded Confirmed Budesonide-Formot 160-4.5 Mcg 2 puff INHALATION RT-BID 03/14/22 05/19/22 [Symbicort 160-4.5 Mcg Inhaler] HYDROcodone/APAP 7.5-325MG [[place] 1 tab PO Q6HR PRN 03/14/22 05/19/22 7.5-325] Hydroxychloroquine Sulfate 200 mg PO DAILY 03/14/22 05/19/22 [Plaquenil] buPROPion HCL [Wellbutrin XL] 150 mg PO DAILY 03/14/22 05/19/22 fentaNYL 25MCG/HR PATCH [Duragesic 1 patch TRANSDERM Q72H 03/14/22 05/19/22 25MCG/HR] lisinopriL 2.5 mg PO DAILY 03/14/22 05/19/22 traZODone HCL [Desyrel] 50 - 100 mg PO HS 03/14/22 05/19/22 Previous Rx's Medication Instructions Recorded Potassium Chloride [Klor-Con M20] 20 meq PO DAILY 30 Days #30 tab 05/19/22 Ondansetron Odt [Zofran Odt] 4 mg PO Q8HR PRN #10 tab 07/17/23 predniSONE [Deltasone] 20 mg PO BID #10 tab 07/17/23 Allergies Allergy/AdvReac Type Severity Reaction Status Date / Time vancomycin Allergy Rash/Hives Verified 07/17/23 17:40 Review of Systems ROS Other: All systems not noted in ROS Statement are negative. <Elpidio Hurt - Last Filed: 07/17/23 18:00> ROS Other: All systems not noted in ROS Statement are negative. Constitutional: Denies: fever Respiratory: Denies: cough Gastrointestinal: Reports: as per HPI, abdominal pain, nausea, vomiting, diarr hea <Philipp Kendall - Last Filed: 07/17/23 22:40> ROS Statement: Those systems with pertinent positive or pertinent negative responses have been documented in the HPI. Past Medical History Past Medical History: Asthma, Rheumatoid Arthritis (RA) Additional Past Medical History / Comment(s): Lupus History of Any Multi-Drug Resistant Organisms: C-DIFF, MRSA Date of last positivie culture/infection: 2016 MDRO Source:: left neck Past Surgical History: Appendectomy, Cardiac Ablation, Cholecystectomy, Hysterectomy, Tonsillectomy Past Psychological History: Anxiety, Depression Smoking Status: Former smoker Past Alcohol Use History: None Reported Past Drug Use History: None Reported - Past Family History Mother Family Medical History: Cancer <Elpidio Hurt - Last Filed: 07/17/23 18:00> General Exam Limitations: no limitations <Elpidio Hurt - Last Filed: 07/17/23 18:00> Limitations: no limitations General appearance: alert, in no apparent distress Head exam: Present: normocephalic Eye exam: Present: normal appearance ENT exam: Present: normal oropharynx Respiratory exam: Present: normal lung sounds bilaterally Cardiovascular Exam: Present: regular rate, normal rhythm GI/Abdominal exam: Present: soft, tenderness (Mild diffuse tenderness). Absent: distended, guarding, rebound, rigid Extremities exam: Present: normal inspection. Absent: pedal edema, calf tenderness Neurological exam: Present: alert Psychiatric exam: Present: normal affect, normal mood Skin exam: Present: normal color <Philipp Kendall - Last Filed: 07/17/23 22:40> - General Exam Comments Initial Comments: Visual Physical Exam Vital signs reviewed General: Well-appearing, nontoxic, no acute distress. Head: Normocephalic, atraumatic Eyes: PERRLA, EOMI ENT: Airway patent Chest: Nonlabored breathing Skin: No visual rash, normal skin tone Neuro: Alert and oriented 3 Musculoskeletal: No gross abnormalities (Elpidio Hurt) Course Vital Signs 07/17/23 17:37 Temperature 97.8 F Pulse Rate 84 Respiratory 18 Rate Blood Pressure 159/99 O2 Sat by Pulse 98 Oximetry Medical Decision Making <Elpidio Hurt - Last Filed: 07/17/23 18:00> - Lab Data Result diagrams: 07/17/23 21:23 07/17/23 21:23 <Philipp Kendall - Last Filed: 07/17/23 22:40> - Medical Decision Making I completed the quick note portion of this chart Signed Elpidio Hurt PA-C (Elpidio Hurt) Was pt. sent in by a medical professional or institution (COREY Nicholson, BELT LINE FEEDER, urgent care, hospital, or longterm...) When possible be specific @ -No Did you speak to anyone other than the patient for history (EMS, parent, family, police, friend...)? What history was obtained from this source @ -No Did you review nursing and triage notes (agree or disagree)? Why? @ -I reviewed and agree with nursing and triage notes Were old charts reviewed (outside hosp., previous admission, EMS record, old EKG, old radiological studies, urgent care reports/EKG's, longterm records)? Report findings @ -No old charts were reviewed Differential Diagnosis (chest pain, altered mental status, abdominal pain women, abdominal pain men, vaginal bleeding, weakness, fever, dyspnea, syncope, headache, dizziness, GI bleed, back pain, seizure, CVA, palpatations, mental health, musculoskeletal)? @ -Differential Abdominal Pain Women: Appendicitis, Cholecystitis, diverticulosis, ischemic bowel, pancreatitis, hepatitis, UTI, gastroenteritis, AAA, incarcerated hernia, bowel obstruction, constipation, inflammatory bowel, hepatitis, peptic ulcer disease, splenic infarction, perforated viscus, vulvitis, ovarian torsion, PID, kidney stone, placenta abruption, this is not meant to be an all-inclusive list EKG interpreted by me (3pts min.). @ -As above X-rays interpreted by me (1pt min.). @ -None done CT interpreted by me (1pt min.). @ -None done U/S interpreted by me (1pt. min.). @ -None done What testing was considered but not performed or refused? (CT, X-rays, U/S, labs)? Why? @ -None What meds were considered but not given or refused? Why? @ -None Did you discuss the management of the patient with other professionals (professionals i.e. DrDemetrio, PA, BELT LINE FEEDER, lab, RT, psych nurse, social media developer, department manager, teacher, forest fire officer, case sealer)? Give summary @ -No Was smoking cessation discussed for >3mins.? @ -No Was critical care preformed (if so, how long)? @ -No Were there social determinants of health that impacted care today? How? (Homelessness, low income, unemployed, alcoholism, drug addiction, transportation, low edu. Level, literacy, decrease access to med. care, alf, re hab)? @ -No Was there de-escalation of care discussed even if they declined (Discuss DNR or withdrawal of care, Hospice)? DNR status @ -No What co-morbidities impacted this encounter? (DM, HTN, Smoking, COPD, CAD, Cancer, CVA, ARF, Chemo, Hep., AIDS, mental health diagnosis, sleep apnea, morbid obesity)? @ -None Was patient admitted / discharged? Hospital course, mention meds given and route, prescriptions, significant lab abnormalities, going to OR and other pertinent info. @ -Patient reevaluated and resting comfortably in bed. Patient was updated on results and plan. Patient is comfortable with discharge home. Patient states she does have some improvement with medications. Patient states usually she gets steroids for this and does request this prior to discharge. Undiagnosed new problem with uncertain prognosis? @ -No Drug Therapy requiring intensive monitoring for toxicity (Heparin, Nitro, Insulin, Cardizem)? @ -No Were any procedures done? @ -No Diagnosis/symptom? @ -Enteritis, Lupus Acute, or Chronic, or Acute on Chronic? @ -Acute on chronic, chronic Uncomplicated (without systemic symptoms) or Complicated (systemic symptoms)? @ -default Side effects of treatment? @ -No Exacerbation, Progression, or Severe Exacerbation? @ -No Poses a threat to life or bodily function? How? (Chest pain, [place], [place], pneumonia, PE, COPD, DKA, ARF, appy, cholecystitis, CVA, Diverticulitis, Homicidal, Suicidal, threat to staff... and all critical care pts) @ -No (Philipp Kendall) - Lab Data Lab Results 07/17/23 07/17/23 Range/Units 21:23 21:23 WBC 4.8 (3.8-10.6) k/uL RBC 4.61 (3.80-5.40) m/uL Hgb 13.4 (11.4-16.0) gm/dL Hct 39.1 (34.0-46.0) % MCV 84.8 (80.0-100.0) fL MCH 29.1 (25.0-35.0) pg MCHC 34.3 (31.0-37.0) g/dL RDW 14.5 (11.5-15.5) % Plt Count 199 (150-450) k/uL MPV 9.3 Neutrophils % 73 % Lymphocytes % 20 % Monocytes % 4 % Eosinophils % 1 % Basophils % 0 % Neutrophils # 3.5 (1.3-7.7) k/uL Lymphocytes # 1.0 (1.0-4.8) k/uL Monocytes # 0.2 (0-1.0) k/uL Eosinophils # 0.1 (0-0.7) k/uL Basophils # 0.0 (0-0.2) k/uL Poikilocytosis Slight Sodium 140 (137-145) mmol/L Potassium 4.0 (3.5-5.1) mmol/L Chloride 104 (98-107) mmol/L Carbon Dioxide 27 (22-30) mmol/L Anion Gap 9 mmol/L BUN 12 (7-17) mg/dL Creatinine 0.65 (0.52-1.04) mg/dL Est GFR (CKD-EPI)AfAm >90 (>60 ml/min/1.73 sqM) Est GFR (CKD-EPI)NonAf >90 (>60 ml/min/1.73 sqM) Glucose 101 H (74-99) mg/dL Calcium 9.3 (8.4-10.2) mg/dL Magnesium 1.8 (1.6-2.3) mg/dL Total Bilirubin 0.5 (0.2-1.3) mg/dL AST 47 H (14-36) U/L ALT 36 H (4-34) U/L Alkaline Phosphatase 750 H (38-126) U/L Total Protein 6.8 (6.3-8.2) g/dL Albumin 3.6 (3.5-5.0) g/dL Lipase 197 (23-300) U/L Disposition <Elpidio Hurt - Last Filed: 07/17/23 18:00> Is patient prescribed a controlled substance at d/c from ED?: No Time of Disposition: 22:40 <Philipp Kendall - Last Filed: 07/17/23 22:40> Clinical Impression: Enteritis Disposition: HOME SELF-CARE Condition: Stable Instructions (If sedation given, give patient instructions): Acute Nausea and Vomiting (ED), Acute Diarrhea (ED) Additional Instructions: Please do follow-up with primary care physician in the next day or 2 for recheck. Please do also follow-up with your nipping machine operator the next day or 2 fo r recheck. Return for fever, increased pain, not tolerating fluids, worsening symptoms or any other concerns. Prescription for steroids has been sent to pharmacy. Prescriptions: predniSONE [Deltasone] 20 mg PO BID #10 tab Ondansetron Odt [Zofran Odt] 4 mg PO Q8HR PRN #10 tab PRN Reason: Nausea Referrals: Sangeeta Helm DO [Primary Care Provider] - 1-2 days
[2023-07-17] MEDS ORDERED: ONDANSETRON ODT 4 MG TAB PO STA (18:48)
[2023-07-17] MEDS ORDERED: HYDROmorphone 1 MG/ML 1 ML SYRINGE IVP STA (21:20)
[2023-07-17] MEDS ORDERED: SODIUM CHLORIDE 0.9% 1,000 ML IV STA (21:20)
[2023-07-17] MEDS ORDERED: FAMOTIDINE 20 MG/2 ML VIAL IV STA (21:20)
[2023-07-17] MEDS ORDERED: ONDANSETRON 4 MG/2 ML VIAL IVP STA ×2 (21:20→22:36)
[2023-07-17 21:30] LABS: Basophils % (A) 0 %; Eosinophils # (A) 0.1 k/uL (0-0.7); Eosinophils % (A) 1 %; HCT 39.1 % (34.0-46.0); HGB 13.4 gm/dL (11.4-16.0); Lymphocytes % (A) 20 %; MCH 29.1 pg (25.0-35.0); MCHC 34.3 g/dL (31.0-37.0); MCV 84.8 fL (80.0-100.0); Mean Platelet Volume 9.3; Monocytes # (A) 0.2 k/uL (0-1.0); Monocytes % (A) 4 %; Neutrophils # (A) 3.5 k/uL (1.3-7.7); Neutrophils % (A) 73 %; Platelet Count 199 k/uL (150-450); Poikilocytosis Slight; RBC 4.61 m/uL (3.80-5.40); RDW 14.5 % (11.5-15.5); WBC 4.8 k/uL (3.8-10.6)
[2023-07-17 22:01] LABS: ALT 36 U/L (4-34); AST 47 U/L (14-36); African American GFR (CKD) >90 (>60 ml/min/1.73 sqM); Albumin 3.6 g/dL (3.5-5.0); Anion Gap 9 mmol/L; Blood Urea Nitrogen 12 mg/dL (7-17); Calcium 9.3 mg/dL (8.4-10.2); Carbon Dioxide 27 mmol/L (22-30); Chloride 104 mmol/L (98-107); Glucose 101 mg/dL (74-99); Lipase 197 U/L (23-300); Magnesium 1.8 mg/dL (1.6-2.3); Non-African American GFR(CKD) >90 (>60 ml/min/1.73 sqM); Sodium 140 mmol/L (137-145); Total Bilirubin 0.5 mg/dL (0.2-1.3); Total Protein 6.8 g/dL (6.3-8.2)
[2023-07-17 22:29] LABS: Alkaline Phosphatase 750 U/L (38-126)
[2023-07-17] MEDS ORDERED: DICYCLOMINE 10 MG/ML 2 ML AMP IM STA (22:36)
[2023-07-17] MEDS ORDERED: methylPREDNISolone SOD SUCCI 125 MG/2 ML VIAL IV STA (22:36)
[2023-07-17 23:43] VITALS: BP 159/90; PULSE 74; TEMP 98.2
== END 2023-07-17 23:24 | disposition home or self-care (01) ==
LOC: EC 17:18
DX: K52.9 Noninfective gastroenteritis and colitis, unspecified (principal); J45.909 Unspecified asthma, uncomplicated; F32.A Depression, unspecified; F41.9 Anxiety disorder, unspecified; Z79.51 Long term (current) use of inhaled steroids; Z79.899 Other long term (current) drug therapy; Z87.891 Personal history of nicotine dependence; Z90.49 Acquired absence of other specified parts of digestive tract; Z86.59 Personal history of other mental and behavioral disorders
CPT/HCPCS: 36415; 80053; 83690; 83735; 85025; 99284; 96372; 96374; 96375 ×3; 96376; 96361; J0500; J2930; J2405; J3490; J1170